=== PATIENT | female | born 1945 | race Caucasian/White ===

== ENCOUNTER 2017-04-30 07:10 | Day surgery (SDC) | payer MEDICARE ==
--- NOTE | 2017-04-30 08:15 | Operative Note ---
Endoscopy Report Date: 04/30/17 Preoperative diagnosis: Screening colonoscopy Procedure Type of procedure: Total colonoscopy Indications: Patient is a 71-year-old white female. She was referred for screening colonoscopy. Patient presented to the office for scheduling and stated that she was passed due for colonoscopy. Review of her records revealed that she had prior colonoscopy in July 2012 which revealed only diverticulosis. She was asymptomatic. No family history. Consent was obtained and patient was taken to same-day surgery endoscopy procedure room. She was positioned in a lateral decubitus position. Adequate intravenous sedation was achieved with titration of 8 mg Versed and 150 g fentanyl for the duration of the procedure. Variable stiffness Olympus colonoscope was inserted via the anus and advanced to the cecum with minimal difficulty. It was advanced a short distance into the ileocecal valve briefly. Colonoscope was withdrawn through the colon with careful surveillance. She had moderate sigmoid diverticulosis. Within the rectum retroflexion was performed which revealed nonpathologic internal hemorrhoids. Colonoscope was withdrawn. Findings 1. Diverticulosis Follow-Up Follow-Up: Likely repeat colonoscopy 10 years unless otherwise indicated. at 0815
[2017-04-30 11:07] VITALS: BP 123/88
== END 2017-04-30 08:45 | disposition home or self-care (01) ==
LOC: SDC 07:10
PROVIDERS: Surgery
PROC: 0DJD8ZZ Inspection of Lower Intestinal Tract, Via Natural or Artificial Opening Endoscopic (ICD-10-PCS; principal; 2017-04-30 07:30)
DX: Z12.11 Encounter for screening for malignant neoplasm of colon (principal); K57.90 Diverticulosis of intestine, part unspecified, without perforation or abscess without bleeding; E11.9 Type 2 diabetes mellitus without complications